=== PATIENT | female | born 1950 ===

== ENCOUNTER 2016-09-17 07:23 | Day surgery (SDC) | payer OTHER ==
[2016-09-12 14:08] VITALS: BMI 24.9
[2016-09-17] MEDS ORDERED: Sodium Chloride 0.9% 1,000 ML IV SCH (08:15)
[2016-09-17] MEDS ORDERED: Propofol 10 mg/ml Inj (20 ML) ONE ×2 (08:41→10:45)
[2016-09-17 12:36] VITALS: BP 134/62; PULSE 58; RESP 20; TEMP 97.6; O2SAT 100
== END 2016-09-17 12:40 | disposition home or self-care (01) ==
LOC: ENDO 07:23
PROVIDERS: ATTEND Internal Medicine
DX: D12.3 Benign neoplasm of transverse colon (principal); K64.8 Other hemorrhoids; I10 Essential (primary) hypertension; E78.5 Hyperlipidemia, unspecified; E11.9 Type 2 diabetes mellitus without complications; Z87.891 Personal history of nicotine dependence; Z91.018 Allergy to other foods; Z12.11 Encounter for screening for malignant neoplasm of colon
CPT/HCPCS: 45380; 45381; 82948; 88305; J2001; J2704; J7040 ×2

== ENCOUNTER 2016-12-02 12:19 | Emergency (ER) | payer OTHER ==
[2016-12-02 12:19] VITALS: BMI 24.9
[2016-12-02 12:30] VITALS: TEMP 99.1
[2016-12-02] MEDS ORDERED: Sodium Chloride 0.9% 1,000 ML IV STA (12:37)
--- NOTE | 2016-12-02 12:42 | ED PDOC ---
Arrival/HPI - General Chief Complaint: Cough, Cold, Congestion Time Seen by Provider: 12/02/16 12:23 Historian: Patient - History of Present Illness Narrative History of Present Illness (Text): 12/02/16 12:34 A 65 year old female, whose past medical history includes diabetes, hypertension , asthma, and cholesterol problem, presents to the emergency department complaining of congestion since last night. Patient reports she has been unable to sleep since symptoms began. Patient notes also experiencing fever and cough. Has no other complaints. Also, patient mentions taking antibiotics but has had no relief. No PMD Time/Duration: Other (last night) Symptom Onset: Sudden Symptom Course: Unchanged Past Medical History - Provider Review Nursing Documentation Reviewed: Yes - Infectious Disease Hx of Infectious Diseases: None - Tetanus Immunization Tetanus Immunization: Unknown - Cardiac Hx Cardiac Disorders: Yes Hx Hypertension: Yes Hx Pacemaker: No - Pulmonary Hx Respiratory Tract Infection: No - Neurological Hx Paralysis: No - HEENT Hx HEENT Disorder: Yes Other/Comment: GLASSES - Renal Hx Renal Disorder: No - Endocrine/Metabolic Hx Endocrine Disorders: Yes Hx Diabetes Mellitus Type 2: Yes - Hematological/Oncological Hx Blood Transfusions: No Hx Blood Transfusion Reaction: No - Integumentary Hx Dermatological Disorder: No - Musculoskeletal/Rheumatological Hx Musculoskeletal Disorders: No - Gastrointestinal Hx Gastroesophageal Reflux: No - Genitourinary/Gynecological Hx Genitourinary Disorders: No - Psychiatric Hx Psychophysiologic Disorder: No Hx Emotional Abuse: No Hx Physical Abuse: No Hx Substance Use: No - Anesthesia Hx Anesthesia: Yes Hx Anesthesia Reactions: No - Suicidal Assessment Feels Threatened In Home Enviroment: No Family/Social History - Physician Review Nursing Documentation Reviewed: Yes Family/Social History: No Known Family HX Smoking Status: Never Smoked Hx Alcohol Use: No Hx Substance Use: No Allergies/Home Meds Allergies/Adverse Reactions: Allergies EGGPLAN Allergy (Intermediate, Uncoded 12/02/16 12:26) RASH Home Medications: Home Meds Medication Instructions Recorded Confirmed Aspirin [Adult Low Dose Aspirin EC] 81 mg PO DAILY 09/16/16 12/02/16 Atorvastatin [Lipitor] 40 mg PO DAILY 09/16/16 12/02/16 Brimonidine 0.2% [Alphagan 0.2% 1 drop OD TID 09/16/16 12/02/16 Opht] Dorzolamide 2% [Trusopt 2% 1 drop OP TID 09/16/16 12/02/16 Ocumeter Plus] Losartan Potassium 50 mg PO DAILY 09/16/16 12/02/16 metFORMIN [glucOPHAGE] 500 mg PO BID 09/16/16 12/02/16 Review of Systems - Physician Review All systems were reviewed & negative as marked: Yes - Review of Systems Constitutional: Fevers ENT: Sinus Congestion Respiratory: Cough Physical Exam Vital Signs Reviewed: Yes Vital Signs Temp Pulse Resp BP Pulse Ox 12/02/16 14:25 82 12 124/90 98 12/02/16 12:28 99.1 F 105 H 18 113/76 105 H Temperature: Afebrile Blood Pressure: Normal Pulse: Regular Respiratory Rate: Normal Appearance: Positive for: Well-Appearing Pain Distress: None Mental Status: Positive for: Alert and Oriented X 3 - Systems Exam Head: Present: Atraumatic, Normocephalic Pupils: Present: PERRL Extroacular Muscles: Present: EOMI Conjunctiva: Present: Normal Mouth: Present: Moist Mucous Membranes Neck: Present: Normal Range of Motion Respiratory/Chest: Present: Decreased Breath Sounds (right side decreased breath sounds) Cardiovascular: Present: Regular Rate and Rhythm, Normal S1, S2. No: Murmurs Abdomen: Present: Normal Bowel Sounds. No: Tenderness, Distention, Peritoneal Signs Back: Present: Normal Inspection Upper Extremity: Present: Normal Inspection. No: Cyanosis, Edema Lower Extremity: Present: Normal Inspection. No: Edema Neurological: Present: GCS=15, CN II-XII Intact, Speech Normal Skin: Present: Warm, Dry, Normal Color. No: Rashes Psychiatric: Present: Alert, Oriented x 3, Normal Insight, Normal Concentration Medical Decision Making ED Course and Treatment: 12/02/16 12:41 Impression: 65 year old female with congestion, fever, and cough. Physical exam shows decreased breath sounds on the right side. Plan: -- Chest X-ray -- Labs -- Tylenol -- IV Fluids -- Serology -- Reassess and disposition Prior Visits: Notes and results from previous visits were reviewed. Patient was last seen in the emergency department on 07/09/2015 for pruritus rash and allergic reaction. Patient was discharged home. Progress Notes: 12/02/2016 13:16 Chest X-ray FINDINGS: LUNGS: No active pulmonary disease. PLEURA: No significant pleural effusion identified, no pneumothorax apparent. CARDIOVASCULAR: Normal. OSSEOUS STRUCTURES: No significant abnormalities. VISUALIZED UPPER ABDOMEN: Normal. 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 This produces a lobular contour deformity of the right side of the mediastinum. It is less likely that this represents mediastinal adenopathy. 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 This produces a lobular contour deformity of the right side of the mediastinum. It is less likely that this represents mediastinal adenopathy. There are no prior studies for comparison Dictator: Kg Liu MD 12/02/16 15:58 pt reassessed: observed to be resting comfortably in nad. xr neg for pna. mild leukoctosis suspected to be infectious. vitals stable. advise outpt f/u and return precautions - Lab Interpretations Lab Results: 12/02/16 12:50 12/02/16 12:50 Lab Results 12/02/16 12:50: Sodium 143, Potassium 4.1, Chloride 103, Carbon Dioxide 28, Anion Gap 16, BUN 10, Creatinine 0.8, Est GFR ( Amer) > 60, Est GFR (Non- Af Amer) > 60, Random Glucose 101, Calcium 9.5, Total Bilirubin 0.8, AST 34, ALT 19, Alkaline Phosphatase 71, Total Protein 7.4, Albumin 4.4, Globulin 3.0, Albumin/Globulin Ratio 1.5 12/02/16 12:50: WBC 11.2 H, RBC 4.85, Hgb 14.3, Hct 42.4, MCV 87.4, MCH 29.5, MCHC 33.7, RDW 12.9, Plt Count 258, MPV 9.5, Gran % 75.6 H, Lymph % (Auto) 13.4 L, Schuyler % (Auto) 7.6 H, Eos % (Auto) 3.2, Baso % (Auto) 0.2, Gran # 8.43 H, Lymph # 1.5, Schuyler # 0.9 H, Eos # 0.4, Baso # 0.02 12/02/16 12:37: Influenza Typ A,B (EIA) Negative for flu a/b 12/02/16 12:37: Grp A Beta Strep Ag Negative I have reviewed the lab results: Yes - RAD Interpretation Radiology Orders: 12/02/16 12:36 CXR [CHEST PORTABLE] [RAD] Stat - Medication Orders Current Medication Orders: Discontinued Medications Acetaminophen (Tylenol 325mg Tab) 975 mg PO STAT STA Stop: 12/02/16 12:38 Last Admin: 12/02/16 12:59 Dose: 975 mg Sodium Chloride (Sodium Chloride 0.9%) 1,000 mls @ 999 mls/hr IV .Q1H1M STA Stop: 12/02/16 13:37 Last Admin: 12/02/16 12:57 Dose: 999 mls/hr eMAR Start Stop Document 12/02/16 12:57 CNR (Rec: 12/02/16 12:57 CNR [id number]) Intravenous Solution Start Date 12/02/16 Start Time 12:57 - Scribe Statement The provider has reviewed the documentation as recorded by the Meek Mack Provider Scribe Attestation: All medical record entries made by the Scribe were at my direction and personally dictated by me. I have reviewed the chart and agree that the record accurately reflects my personal performance of the history, physical exam, medical decision making, and the department course for this patient. I have also personally directed, reviewed, and agree with the discharge instructions and disposition. Disposition/Present on Arrival - Present on Arrival Any Indicators Present on Arrival: No History of DVT/PE: No History of Uncontrolled Diabetes: No Urinary Catheter: No History of Decub. Ulcer: No History Surgical Site Infection Following: None - Disposition Have Diagnosis and Disposition been Completed?: Yes Diagnosis: Bronchitis Disposition: HOME/ ROUTINE Disposition Time: 14:34 Condition: STABLE Discharge Instructions (ExitCare): Acute Bronchitis (ED) Additional Instructions: please follow up with your doctor. return to er worsening symptoms or concerns. Prescriptions: Azithromycin [Zithromax] 250 mg PO DAILY #6 tab Referrals: [facility] [Outside] - Follow up with primary [facility] [place]] - Follow up with primary Forms: [employer] (Kinyarwanda), WORK NOTE
[2016-12-02 13:07] LABS: BASO # 0.02 K/mm3 (0.0-2.0); BASO % 0.2 % (0.0-3.0); EOS # 0.4 (0.0-0.7); EOS % 3.2 % (1.5-5.0); GRAN # 8.43 (1.4-6.5); GRAN % 75.6 % (50.0-68.0); HEMATOCRIT 42.4 % (36.0-48.0); LYMPH # 1.5 (1.2-3.4); LYMPH % 13.4 % (22.0-35.0); MEAN CELL VOLUME 87.4 fl (80.0-105.0); MEAN CORPUSCULAR HEMOGLOBIN 29.5 pg (25.0-35.0); MEAN CORPUSCULAR HGB CONC 33.7 g/dl (31.0-37.0); MEAN PLATELET VOLUME 9.5 fl (7.0-11.0); MONO # 0.9 (0.1-0.6); MONO % 7.6 % (1.0-6.0); RED CELL DISTRIBUTION WIDTH 12.9 % (11.5-14.5); WHITE BLOOD COUNT 11.2 10^3/ul (4.5-11.0)
[2016-12-02 13:15] LABS: ALB/GLOB RATIO 1.5 (1.1-1.8); ALKALINE PHOSPHATASE 71 U/L (38-126); ALT/SGPT 19 U/L (7-56); AST/SGOT 34 U/L (14-36); BILIRUBIN,TOTAL 0.8 mg/dL (0.2-1.3); BLOOD UREA NITROGEN 10 mg/dL (7-21); CALCIUM 9.5 mg/dL (8.4-10.5); CARBON DIOXIDE 28 mmol/L (21-33); CHLORIDE 103 mmol/L (98-107); GFR AFRICAN-AMERICAN > 60; GLUCOSE,RANDOM 101 mg/dL (70-110); POTASSIUM 4.1 mmol/L (3.6-5.0); SODIUM 143 mmol/L (132-148); TOTAL PROTEIN 7.4 g/dL (5.8-8.3)
--- NOTE | 2016-12-02 13:17 | RAD ---
HISTORY: cough COMPARISON: No prior. FINDINGS: LUNGS: No active pulmonary disease. PLEURA: No significant pleural effusion identified, no pneumothorax apparent. CARDIOVASCULAR: Normal. OSSEOUS STRUCTURES: No significant abnormalities. VISUALIZED UPPER ABDOMEN: Normal. 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 This produces a lobular contour deformity of the right side of the mediastinum. It is less likely that this represents mediastinal adenopathy. 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 This produces a lobular contour deformity of the right side of the mediastinum. It is less likely that this represents mediastinal adenopathy. There are no prior studies for comparison
[2016-12-02 14:26] VITALS: BP 124/90; PULSE 82; RESP 12; O2SAT 98
== END 2016-12-02 14:26 | disposition home or self-care (01) ==
LOC: ED 12:19
DX: J20.9 Acute bronchitis, unspecified (principal); I10 Essential (primary) hypertension; E11.9 Type 2 diabetes mellitus without complications
CPT/HCPCS: 71010; 80053; 85025; 87070; 87430; 87804; 99283; J7040

== ENCOUNTER 2017-04-01 06:35 | Day surgery (SDC) | payer OTHER ==
[2017-04-01] MEDS ORDERED: Lidocaine 2% Inj (20ml) ONE (08:00)
[2017-04-01] MEDS ORDERED: Propofol 10 mg/ml Inj (20 ML) ONE (08:00)
[2017-04-01] MEDS ORDERED: Sodium Chloride 0.9% 1,000 ML IV SCH (08:45)
[2017-04-01 08:55] VITALS: O2SAT 100
[2017-04-01 09:54] VITALS: BP 142/92; PULSE 69; RESP 14; TEMP 98
== END 2017-04-01 09:56 | disposition home or self-care (01) ==
LOC: ENDO 06:35
PROVIDERS: ATTEND Internal Medicine
DX: D12.3 Benign neoplasm of transverse colon (principal); K64.8 Other hemorrhoids
CPT/HCPCS: 45380; 82948; 88305; J2704; J7040 ×2